=== PATIENT | female | born 1985 | race Caucasian/White ===

== ENCOUNTER 2016-04-15 18:26 | Emergency (ER) | payer BC ==
[2016-04-15 18:34] VITALS: BP 119/82
[2016-04-15] MEDS ORDERED: Fluorescein Sodium TOPICAL* 1 MG TEST ONE (19:17)
[2016-04-15] MEDS ORDERED: BSS OPTH.SOL* BTL ONE (19:17)
[2016-04-15] MEDS ORDERED: Proparacaine 0.5% OPHTH.SOL* 15 ML BTL ONE (19:17)
--- NOTE | 2016-04-15 19:23 | UC ---
Eye Complaint HPI - History of Current Complaint Chief Complaint: UCEye Stated Complaint: LEFT EYE INJURY Time Seen by Provider: 04/15/16 19:12 Hx Obtained From: Patient Hx Last Menstrual Period: 04/07/16 ?: No Onset/Duration: Sudden Onset - hit eye on corner with immediate pain., Lasting Hours - 7, Still Present Severity Initially: Moderate Severity Currently: Moderate Location of Injury: Conjunctiva, Globe Character: Sharp Aggravating Factor(s): Blinking, Other - moving the eye Alleviating Factor(s): Nothing Associated Signs And Symptoms: Positive: Photophobia, Vision Impairment Right - lower visual field. Negative: Drainage (Clear), Drainage (Purulent), Vision Impairment Bilateral - Risk Factors Penetrating Injury Risk Factor: Negative Globe Rupture Risk Factors: Recent Trauma Optic Artery Occlusion Risk Factors: Negative - Allergies/Home Medications Allergies/Adverse Reactions: Allergies Allergy/AdvReac Type Severity Reaction Status Date / Time Sulfa Antibiotics Allergy Severe Hives Verified 04/15/16 18:34 Morphine Allergy Mild Rash Verified 04/15/16 18:34 Sulfa Drugs Allergy Mild Rash Verified 04/15/16 18:34 ENVIRONMENTAL Allergy Congestion Uncoded 04/15/16 18:34 Home Medications: Home Medications DOXYcycline CAP(*) [DOXYcycline 100MG CAP(*)] 100 mg PO DAILY 04/15/16 [History Confirmed 04/15/16] Tizanidine HCl 2 mg PO DAILY 04/15/16 [History Confirmed 04/15/16] hydrOXYzine HCL TAB* [Atarax TAB*] 10 mg PO QID PRN 04/15/16 [History Confirmed 04/15/16] PMH/Surg Hx/FS Hx/Imm Hx Endocrine History Of: Denies: Diabetes, Thyroid Disease Cardiovascular History Of: Denies: Cardiac Disorders, Hypertension, Pacemaker/ICD Respiratory History Of: Reports: Asthma - USES INHALERS Denies: COPD GI/ History Of: Denies: Ulcer, Renal Disease Psychological History Of: Reports: Anxiety - ON MEDICATION, Depression - ON MEDICATION - Surgical History Surgical History: Yes Surgery Procedure, Year, and Place: LEFT KNEE SURGERY X2, APPENDECTOMY, CHOLECYSTECTOMY. WISDOM TEETH EXTRACTED. 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 Lives: With Family Alcohol Use: None Substance Use Type: None Smoking Status (MU): Never Smoked Tobacco Have You Smoked in the Last Year: No - Immunization History Most Recent Influenza Vaccination: Jan 2013 Review of Systems Eyes: Blurred Vision, Eye Redness All Other Systems Reviewed And Are Negative: Yes Physical Exam Triage Information Reviewed: Yes Appearance: Well-Appearing, No Pain Distress, Well-Nourished Vital Signs: Initial Vital Signs Temp 97.7 F 04/15/16 18:31 Pulse 97 04/15/16 18:31 Resp 16 04/15/16 18:31 BP 119/82 04/15/16 18:31 Pulse Ox 99 04/15/16 18:31 Vital Signs Reviewed: Yes Eyes: Positive: Other: - hemorrhage on the medial inferior left eye conjunctiva. [place] intact to opposition. ENT Exam: Normal ENT: Positive: Nasal congestion Neck exam: Normal Neck: Positive: Nontender Respiratory Exam: Normal Cardiovascular Exam: Normal Musculoskeletal Exam: Normal Neurological Exam: Normal Psychological Exam: Normal Skin Exam: Normal - Additional Comments Left eye flourescein uptake positive for the lower medial edge of the cornea onto the conjunctiva. Eye Complaint Course/Dx - Differential Dx/Diagnosis Differential Diagnosis/HQI/PQRI: Corneal Abrasion, Detached Retina, Hyphema Provider Diagnoses: Corneal abrasion. Discharge - Discharge Plan Condition: Stable Disposition: HOME Prescriptions: Erythromycin OPHTH.OINT* [Ilotycin OPHTH.OINT*] 0.25 inch LEFT EYE TID #3.5 gm Patient Education Materials: Corneal Abrasion (ED), Erythromycin (Into the eye ) Additional Instructions: EYE OINTMENT USE: Wash hands. Place 1/4" strip across tip of finger. Pull lower lid down with the index finger and stabilize the ointment finger with the middle finger and scrape the ointment off on the lid. Pull the lid out and let go as you look down.
[2016-04-15] MEDS ORDERED: Erythromycin OPTH OINT* APPLIC OINT LEFT EYE ONE (19:31)
== END 2016-04-15 19:44 | disposition home or self-care (01) ==
LOC: UCCORT 18:26
DX: S05.02XA Injury of conjunctiva and corneal abrasion without foreign body, left eye, initial encounter (principal); W22.8XXA Striking against or struck by other objects, initial encounter; Y92.9 Unspecified place or not applicable
CPT/HCPCS: 99213; A9270-GY; G0463

== ENCOUNTER 2018-05-29 23:17 | Emergency (ER) | payer BC ==
--- NOTE | 2018-05-30 00:21 | ED ---
Neurological HPI - HPI Summary HPI Summary: A 33 y/o female brought in by [place] ambulance accompanied by her presents to [facility] with a chief complaint of a possible seizure on 05/28/18. The patient went to [facility] where she had bloodwork and a CT done which were negative. Per , at 17:00 on 05/28/18 the patient's full body was twitching and her eyes were rolling. She fell face first into her sons closet. The seizure-like activity lasted less than 45 seconds and afterwards she was groggy for about 35 seconds but looked mostly like she "just woke up from a nap. After she was discharged she has had trouble with body spasms when trying to sleep. She has been having N/V with headaches and is photophobic. At triage she rated her pain a 0/10 in severity. She remembers feeling nasal congestion before her seizure-like activity. She has a Hx of migraines and narcolepsy and sees Dr. Cruz. The patient reports that her headache is unlike her typical migraines. 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 Episode Lasting: Seconds/Minutes Aggravating: Bright Lights Alleviating: Nothing Associated Signs and Symptoms: Positive: Headache, Nausea/Vomiting - Allergy/Home Medications Allergies/Adverse Reactions: Allergies Allergy/AdvReac Type Severity Reaction Status Date / Time Sulfa (Sulfonamide Allergy Severe Hives Verified 04/28/18 11:03 Antibiotics) morphine AdvReac Mild GI Upset Verified 04/28/18 11:03 ENVIRONMENTAL Allergy Intermediate Congestion Uncoded 04/28/18 11:03 PMH/Surg Hx/FS Hx/Imm Hx Endocrine/Hematology History: Denies: Hx Diabetes, Hx Thyroid Disease Cardiovascular History: Reports: Other Cardiovascular Problems/Disorders - asthma ok today per pt Denies: Hx Hypertension, Hx Pacemaker/ICD Respiratory History: Reports: Hx Asthma - USES INHALERS, Hx Seasonal Allergies Denies: Hx Chronic Obstructive Pulmonary Disease (COPD) GI History: Reports: Hx Gastroesophageal Reflux Disease - rare Denies: Hx Ulcer Comment Only: Other GI Disorders - rt side abd pain, vomiting since this am History: Denies: Hx Renal Disease Musculoskeletal History: Reports: Hx Arthritis, Hx Back Problems, Hx Orthopedic Injury, Other Musculoskeletal History - various falls and injuries d/t equestrian activities Denies: Hx Scoliosis Sensory History: Denies: Hx Contacts or Glasses, Hx Hearing Aid Opthamlomology History: Denies: Hx Contacts or Glasses Neurological History: Reports: Hx Headaches, Hx Migraine, Other Neuro Impairments/Disorders - narcolepsy Psychiatric History: Reports: Hx Anxiety, Hx Attention Deficit Hyperactivity Disorder, Hx Depression, Hx Post Traumatic Stress Disorder, Other Psychiatric Issues/Disorders - Mood Disorder, Narcolepsy, Nightmares, Denies: Hx Panic Disorder - Cancer History Hx Chemotherapy: No - Surgical History Surgery Procedure, Year, and Place: [facility]: LEFT KNEE SURGERY X2 2009, 2011,. [facility] : APPENDECTOMY 2011,. [facility]: CHOLECYSTECTOMY 2009,. [facility]: SINUS SURG X2 2014. [facility]: 2014. WISDOM TEETH EXTRACTED Hx Anesthesia Reactions: No Infectious Disease History: No Infectious Disease History: Reports: Hx Shingles Denies: Hx Hepatitis, Hx Human Immunodeficiency Virus (HIV), Traveled Outside the [place] in Last 30 Days - Family History Known Family History: Positive: Hypertension - Social History Alcohol Use: Rare Hx Substance Use: No Substance Use Type: Reports: None Hx Tobacco Use: No Smoking Status (MU): Never Smoked Tobacco Have You Smoked in the Last Year: No Review of Systems Positive: Photophobia Positive: Vomiting, Nausea Neurological: Other - positive: possible seizure Positive: Headache All Other Systems Reviewed And Are Negative: Yes Physical Exam - Summary Physical Exam Summary: Appearance: Well-appearing, Well-nourished, lying in bed comfortably Skin: Warm, dry, no obvious rash Eyes: sclera anicteric, no conjunctival pallor ENT: mucous membranes moist, pharynx appears normal Neck: Supple, nontender Respiratory: Clear to auscultation, no signs of respiratory distress Cardiovascular: Normal S1, S2. No murmurs. Normal distal pulses in tibial and radial bilaterally. Abdomen: Soft, nontender, normal active bowel sounds present Musculoskeletal: Normal, Strength/ROM Intact Neurological: A&Ox3, awake and alert, mentation is normal, speech is fluent and appropriate Psychiatric: affect is normal, does not appear anxious or depressed Triage Information Reviewed: Yes Vital Signs On Initial Exam: Initial Vitals Pulse Resp BP Pulse Ox 107 13 114/96 98 05/29/18 23:26 05/29/18 23:26 05/29/18 23:26 05/29/18 23:26 Vital Signs Reviewed: Yes Diagnostics - Vital Signs Vital Signs Temp Pulse Resp BP Pulse Ox 05/30/18 00:01 95 15 99 05/29/18 23:56 100 13 131/92 98 05/29/18 23:31 98.9 F 122 18 114/96 98 05/29/18 23:27 104 19 98 05/29/18 23:26 107 13 114/96 98 - Laboratory Lab Statement: Any lab studies that have been ordered have been reviewed, and results considered in the medical decision making process. Course/Dx - Course Course Of Treatment: A 33 y/o female brought in by [place] ambulance accompanied by her presents to [facility] with a chief complaint of a possible seizure on 05/28/18. The patient went to [facility] where she had bloodwork and a CT done which were negative. Per , at 17:00 on 05/28/18 the patient's full body was twitching and her eyes were rolling. She fell face first into her sons closet. The seizure-like activity lasted less than 45 seconds and afterwards she was groggy for about 35 seconds but looked mostly like she "just woke up from a nap. After she was discharged she has had trouble with body spasms when trying to sleep. She has been having N/V with headaches and is photophobic. At triage she rated her pain a 0/10 in severity. She remembers feeling nasal congestion before her seizure-like activity. She has a Hx of migraines and narcolepsy and sees Dr. Cruz. The patient reports that her headache is unlike her typical migraines. The physical exam was unremarkable. In the ED course the patient was given Acetaminophen PO, Benadryl IV, Toradol IV and Compazine IV. Upon re-eval the patient was feeling better. She will be discharged home. She is agreeable with this plan. - Diagnoses Provider Diagnoses: Migraine headache Discharge - Sign-Out/Discharge Documenting (check all that apply): Patient Departure - DC Patient Received Moderate/Deep Sedation with Procedure: No - Discharge Plan Condition: Improved Disposition: HOME Patient Education Materials: Migraine Headache (ED) Referrals: Navarro LEON,Cheo Oviedo [Primary Care Provider] - Additional Instructions: The episode you had on Saturday does not sound typical for a seizure, rather it is likely a fainting episode with some convulsive type activity associated with it (convulsive syncope). I think this likely triggered a migraine, which seems to have responded to treatment here, so I don't feel that we need to admit you to the hospital, but I would recommend you followup with your neurologist about this. - Billing Disposition and Condition Condition: IMPROVED Disposition: Home - Attestation Statements Document Initiated by Mariluz: Yes Documenting Scribe: Jacky Hernandez Provider For Whom Mariluz is Documenting (Include Credential): Arnaldo Ibarra MD Scribe Attestation: I, Jacky Hernandez, scribed for Arnaldo Ibarra MD on 06/03/18 at 1850. Scribe Documentation Reviewed: Yes Provider Attestation: The documentation as recorded by the Jacky aggarwal accurately reflects the service I personally performed and the decisions made by me, Arnaldo Ibarra MD Status of Scribe Document: Viewed
--- OUTSIDE RECORDS SUMMARY | 2018-05-30 00:27 | XMS REPORT | Continuity of Care Document ---
:1985 External Reference #:[id number] Author Name Caitlin Ortiz Care Team Providers Name Role Phone Cheo Briceño PA Primary Care Physician Unavailable Payers Date Identification Numbers Payment Provider Subscriber Effective: 2010 Policy Number: [id number] [employer] Fareed Arango PayID: [id number] [address] [address] [place] [address] Advance Directives Description No Information Available Problems Date Description Provider Status Onset: 10/18/2015 Narcolepsy Yahaira Connelly MD Active Onset: 11/14/2015 Obesity Jessica Bowman MD Active Onset: 11/14/2015 Hypersomnia, unspecified Jessica Bowman MD Active Onset: 11/14/2015 Recurrent isolated sleep paralysis Jessica Bowman MD Active Onset: 01/03/2016 Obstructive sleep apnea syndrome Jessica Bowman MD Active Onset: 01/03/2016 Sleep dysfunction with sleep stage Jessica Bowman MD Active disturbance Family History Date Family Member(s) Observation Comments General narcolepsy maternal grandmother General Multiple Sclerosis (MS) aunt General mother-kidney disease,depression,anxiety Father Stroke Mother Hypertension Mother Hypercholesterolemia Mother Obesity Siblings 1/[address] from Cystic fibrosis Social History Type Date Description Comments Sex Unknown Marital Status 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 /2018 s each Jackson, nostril M.D. prn migraine, max 2 doses a day, max 2 days a week Methylphenidate 05/08 Active Tablets 10mg 60tab 1 po qam G47.411 Adam S. HCL s for 1 wk Jackson, then 1 qam M.D. and 1 at noon Knee Scooter 05/02 Active use as M25.372 needed for Zheng, non-weight M.D. bearing Oxycodone HCL 04/28 Active Tablets 5mg 20tab 1 tabs by Ludin s mouth Zheng, every 6 M.D. hours as needed Sumatriptan 03/13 Active Solution 4mg/0.5ML 3ml 1 Adam S. Auto-Inject injection Anthony, twice M.D. daily as needed headache no more than 2 days/week. please include autoinject or with instructio ns. Melatonin 01/02 Active Tablets 5mg 30tab 1 tablet F51.5 Jessica s by mouth MD Colby at night-uses 10mg tab now at bedtime Bupropion HCL Active Tablets 300mg 90tab 1 po qd Unknown /0000 s Zyrtec Allergy Active Tablets 10mg 90tab 1 tab qd Unknown /0000 s as needed Ventolin HFA Active Aerosol 108(90Bas 1unit 2 puffs po Unknown /0000 e) s qid prn mcg/Act Ibuprofen Active Tablets 200mg 100ta 1 tab po Unknown /0000 bs prn Loratadine Active Tablets 10mg 1 by mouth Unknown Allergy Relief /0000 Dispers every day as needed Tizanidine HCL Active Tablets 2mg 1 tab tid Unknown /0000 as needed Lexapro 00 Active Tablets 10mg 1 by mouth Unknown /0000 every day Nuvaring Active Ring 0.12-0.01 insert Unknown /0000 5mg/24HR intravagin ally for 3 weeks, then remove for 1 week Multi-Vitamin Active Tablets 1 by mouth Unknown Daily /0000 every day Tums 00 Active Chewtabs 500mg 4 Unknown /0000 chewtabs by mouth as needed, indigestio n Aleve Active Tablets 220mg 2 tablets Unknown /0000 every 12 hours as needed pain Depakote Active Tablets DR 250mg 1 by mouth Unknown /0000 in A.M. and 4 tabs at night Flonase Allergy Active Suspension 50mcg/Act 2 puffs Unknown Relief each nare as needed Medical Active Powder dilutes Unknown Marijuana 1 of teaspoon in water consumes orally as needed Merkel Active Tablets 300mg Unknown Carbonate / Methylphenidate Active Tablets 10mg take 1 Unknown HCL / tablet by mouth once daily Amitriptyline 01/16 Hx Tablets 10mg 90tab 1po qhs G43.009 Adam S. s for 2 wks Anthony, - then 2 qhs M.D. 03/10 for 2 wks /2017 then 3 qhs Ultracet 09/02 Hx Tablets 37.5-325m 30tab 1 - 2 po Ivonne /2012 g s q4-6hr prn Pendleton, - pain M.D. 01/14 Venlafaxine HCL Hx Tablets 75mg 90tab 1 po qd Unknown / s - 01/14 Buspirone HCL Hx Tablets 5mg 60tab 1 tab by Unknown /0000 s mouth tid - prn 01/14 Naproxen Hx Tablets 250mg 60tab 1 tab po Unknown / s tid prn - 01/15 Ortho-Cyclen Hx Tablets 0.25-35mg 1tabs 1 po qd Unknown /0000 -mcg - 01/14 Oxycodone/Acetam Hx Tablets 5-325mg 90tab 1 tab po Unknown inophen /0000 s q 4 hrs - prn pain 01/14 Metaxalone Hx Tablets 800mg 30tab take 1 Unknown /0000 s tablet 3 - times a 01/14 day needed Pulmicort Hx Aerosol 180mcg/Ac 1unit 2 puffs Unknown Flexhaler / t s twice - daily 01/14 Sertraline HCL 00 Hx Tablets 100mg 1.5 tabs Unknown /0000 by mouth - every day 01/14 Albuterol Hx Tablets 2mg 2 puffs Unknown Sulfate /0000 four times - a day as 01/14 Percocet Hx Tablets 5-325mg 1-2 by Unknown /0000 mouth - every 4 to 01/14 6 hours as needed pain Trazodone HCL Hx Tablets 50mg 1 tablet Unknown /0000 at bedtime - as needed 01/14 Hydroxyzine HCL Hx Tablets 50mg take 1 tab Unknown /0000 by mouth - three 03/10 times a day as needed Oxycodone HCL Hx Tablets 10mg 1 by mouth Unknown /0000 every 6 - hours as 03/10 pain Gabapentin Hx Capsules 100mg 1 PO QHS Unknown /0000 - 03/10 Merkel Hx Tablets 300mg 1 tab Unknown Carbonate /0000 twice - daily 04/15 Sumatriptan Hx Tablets 100mg take 1 Unknown Succinate /0000 tablet by - mouth AT 03/13 Onset Migraine, May Repeat Once In 2 Hours as Needed Methylphenidate Hx Tablets 10mg take 1 Unknown HCL /0000 tablet by - mouth once 04/15 Immunizations Description No Information Available Vital Signs Date Vital Result Comment 05/27/2018 9:18am Height 67.25 inches 5'7.25" Weight 210.00 lb Patient stated Heart Rate 80 /min BP Systolic 110 mmHg BP Diastolic 68 mmHg Respiratory Rate 14 /min Pain Level 2 BMI (Body Mass Index) 32.6 kg/m2 05/08/2018 10:06am Height 67.25 inches 5'7.25" Weight 213.00 lb Heart Rate 64 /min BP Systolic 138 mmHg BP Diastolic 90 mmHg Respiratory Rate 17 /min Body Temperature 98.1 F Pain Level 7 BMI (Body Mass Index) 33.1 kg/m2 04/16/2018 1:25pm Heart Rate 100 /min BP Systolic Sitting 100 mmHg BP Diastolic Sitting 78 mmHg Respiratory Rate 12 /min no respiratory difficulties Pain Level 3 03/13/2018 8:22am Height 67.25 inches 5'7.25" Weight 200.00 lb BP Systolic Sitting 124 mmHg BP Diastolic Sitting 70 mmHg Respiratory Rate 17 /min Pain Level 4 BMI (Body Mass Index) 31.1 kg/m2 03/12/2018 1:09pm Height 67.25 inches 5'7.25" Weight 200.00 lb Heart Rate 68 /min BP Systolic Sitting 122 mmHg BP Diastolic Sitting 80 mmHg Respiratory Rate 16 /min Pain Level 3 BMI (Body Mass Index) 31.1 kg/m2 01/29/2018 3:35pm Height 67.25 inches 5'7.25" Weight 202.00 lb BP Systolic 122 mmHg BP Diastolic 76 mmHg BMI (Body Mass Index) 31.4 kg/m2 01/16/2018 8:40am Height 67.25 inches 5'7.25" Weight 202.00 lb Heart Rate 104 /min BP Systolic 114 mmHg BP Diastolic 76 mmHg Respiratory Rate 16 /min Pain Level 2 O2 % BldC Oximetry 98 % BMI (Body Mass Index) 31.4 kg/m2 01/15/2018 9:14am Height 67 inches 5'7" Weight 202.00 lb Heart Rate 91 /min BP Systolic 130 mmHg BP Diastolic 84 mmHg Respiratory Rate 16 /min Pain Level 4 O2 % BldC Oximetry 98 % BMI (Body Mass Index) 31.6 kg/m2 01/03/2016 11:41am Height 67 inches 5'7" Weight 206.00 lb Heart Rate 72 /min BP Systolic Sitting 128 mmHg BP Diastolic Sitting 74 mmHg Respiratory Rate 14 /min O2 % BldC Oximetry 98 % BMI (Body Mass Index) 32.3 kg/m2 11/14/2015 11:03am Height 67 inches 5'7" Weight 126.00 lb Heart Rate 88 /min BP Systolic 124 mmHg BP Diastolic 88 mmHg Respiratory Rate 14 /min O2 % BldC Oximetry 98 % BMI (Body Mass Index) 19.7 kg/m2 Neck Circumference in inches 15 10/18/2015 1:17pm Height 67 inches 5'7" Weight 216.00 lb Heart Rate 56 /min BP Systolic Sitting 120 mmHg BP Diastolic Sitting 88 mmHg Respiratory Rate 14 /min BMI (Body Mass Index) 33.8 kg/m2 08/22/2012 8:57am Heart Rate 86 /min BP Systolic Sitting 122 mmHg BP Diastolic Sitting 78 mmHg Respiratory Rate 16 /min 07/11/2012 11:22am Weight 175.00 lb Heart Rate 71 /min BP Systolic Sitting 122 mmHg BP Diastolic Sitting 86 mmHg Respiratory Rate 18 /min Results Test Date Facility Test Result H/L Range Note Surgical Pathology 09/02/2012 [facility] S RUN DATE: [address] <SEE NOTE> [place], [place] [id number] [phone] 1 RUN DATE: 09/04/12 [facility] LAB LIVE PAGE 1 RUN TIME: 1312 [address] [employer] [facility], [place], [place] [address] Specimen Inquiry Name: LEONILA RODRIGUEZ : [address]: Ivonne Pendleton MD Acct: [id number] Unit: [id number] AGE: 27 Location: [facility] Re09/02/12 SEX: F Status: REG [facility] SPEC: [id number] OBDULIO: 09/02/12- [facility] DR: Ivonne Pendleton MD REQ: [id number] RECD: 09/02/12 STATUS: SOUT _ ORDERED: LEVEL III FINAL DIAGNOSIS Soft tissue right little finger, excision: 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 PRE-OPERATIVE DIAGNOSIS Right little finger foreign body GROSS DESCRIPTION The specimen is received in formalin labeled Leonila Rodriguez, Right Little Finger Mass, and consists of a skin and subcutaneous tissue measuring 1.0 x 6 x 0.4 cm. Also submitted is a minute mistry, soft tissue fragment measuring 0.3 x 0.2 x 0.1 cm. The specimen is inked, sectioned, and submitted entirely, one cassette. Signed (signature on file) Cheo Kaye MD 1311 END OF REPORT * ML=Testing performed at Main Lab DEPARTMENT OF PATHOLOGY, [address] [place] [address] Cheo Kaye M.D. Director [facility] Permit #[id number] Procedures Date Code Description Status 05/08/2018 35276 Short Leg Cast Completed 04/28/2018 31682 Repair Collateral Ligament Ankle, Primary Completed 04/28/2018 46957 Repair Collateral Ligament Ankle, Primary Completed 12/14/2015 38085 Polysomnography Sleep Staging 4+ Parameters Completed 09/02/2012 07555 Excision Tumor,Soft Tissue Of Hand Or Finger Subq Completed 08/28/2012 95170 Rad Exam; Fingers Completed 07/30/2012 02771 EEG Recording Awake & Drowsy Completed Encounters Type Date Location Provider Dx Diagnosis Office Visit 05/08/2018 [place] G43.009 Migraine w/o aura , 4:00p Neurologic Serv Of Kishor Cruz not intractable, Tumbler Machine Operator w/o status migrainosus 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 left ankle AT [place] Office Visit 01/29/2018 3:15p Orthopedic Ludin M25.372 Other instability, Services Of Ann-Marie Calzada M.D. 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 M54.5 Low back pain Office Visit 01/15/2018 9:00a Orthopedic Ludin Calzada M25.572 Pain in left Services Of [facility] AT M.DWilfred ankle and [place] joints of left foot M25.372 Other instability, left ankle Office Visit 01/03/2016 11:30a Pulmonology And Jessica G47.33 Obstructive sleep Sleep Services Of MD Colby apnea (adult) [employer]bler Machine Operator (pediatric) G47.10 Hypersomnia, unspecified G47.53 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 Multiple Sites Office Visit 08/22/2012 8:45a [place] Anya Palencia 780.79 Mal[place]ise And Services Of Ann-Marie Carrero M.D. Fatigue Other 327.43 Recurrent Isolated Sleep Paralysis Office Visit 07/11/2012 11:00a [place] Anya Palencia 780.79 [place] And Services Of Ann-Marie Carrero M.D. Fatigue Other 780.02 Transient Alteration Of Awareness Office Visit 10/12/2010 [employer] Ivonne 832.02 Dislocation Elbow 10:00a of Ann-Marie Pendleton M.D. Posterior Closed Plan of Treatment Future Appointment(s):06/24/2018 9:30 am - Ludin Calzada M.D. at [facility] [place]07/10/2018 1:30 pm - Adam Cruz M.D. at [facility] Neurologic Serv Of [facility]05/27/2018 - Ludin Calzada M.D.M25.372 Other instability, left ankleNew Therapy:Physical TherapyFollow up:4 weeks
--- OUTSIDE RECORDS SUMMARY | 2018-05-30 00:27 | XMS REPORT | Continuity of Care Document ---
:1985 External Reference #:[id number] Author Name Blanca Ruano Care Team Providers Name Role Phone Cheo Briceño PA Primary Care Physician Unavailable Payers Type Date Identification Numbers Payment Provider Subscriber Effective: Policy Number: [id number] [employer] Fareed Arango 2010 PayID: [id number] [address] [address] [place] [address] Advance Directives Description No Information Available Problems [...] Active disturbance Family History Date Family Member(s) Problem(s) Comments General narcolepsy maternal grandmother General Multiple Sclerosis (MS) aunt General mother-kidney disease,depression,anxiety Father Stroke Mother Hypertension Mother Hypercholesterolemia Mother Obesity Siblings 1/[address] from Cystic fibrosis Social History Type Date Description Comments Sex Unknown Marital 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 s each Anthony, nostril M.D. prn migraine, max 2 doses a day, max 2 days a week Methylphenidate 05/08 Active Tablets 10mg 60tab 1 po qam G47.411 Adam S. HCL s for 1 wk [place], then 1 qam M.D. and 1 at noon Knee Scooter 05/02 Active use as M25.372 needed for Zheng, non-weight M.D. bearing Oxycodone HCL 04/28 Active Tablets 5mg 20tab 1 tabs by Ludin s mouth Zheng, every 4-6 M.D. hours as needed Sumatriptan 03/13 Active [...] tab tid Unknown /0000 as needed Lexapro Active Tablets 10mg 1 by mouth Unknown /0000 every day Nuvaring 00 Active Ring 0.12-0.01 insert Unknown /0000 5mg/24HR intravagin ally for 3 weeks, then remove for 1 week Multi-Vitamin Active Tablets 1 by mouth Unknown Daily /0000 every day Tums Active Chewtabs 500mg 4 Unknown /0000 chewtabs by mouth as needed, indigestio n Aleve Active Tablets 220mg 2 tablets Unknown /0000 every 12 hours as needed pain Depakote Active Tablets DR 250mg 1 by mouth Unknown /0000 in A.M. and 4 tabs at night Flonase Allergy Active Suspension 50mcg/Act 2 puffs Unknown Relief / each nare as needed Medical Active Powder dilutes Unknown Marijuana 1/ of teaspoon in water consumes orally as needed [place] Active Tablets 300mg Unknown Carbonate / Methylphenidate [...] Tablets 75mg 90tab 1 po qd Unknown /0000 s - 01/14 Buspirone HCL Hx Tablets 5mg 60tab 1 tab by Unknown /0000 s mouth tid - prn 01/14 Naproxen Hx Tablets 250mg 60tab 1 tab po Unknown /0000 s tid prn - 01/15 Ortho-Cyclen Hx [...] Aerosol 180mcg/Ac 1unit 2 puffs Unknown Flexhaler /0000 t s twice - daily 01/14 Sertraline HCL Hx Tablets 100mg 1.5 tabs Unknown /0000 by mouth - every day 01/14 Albuterol Hx Tablets 2mg 2 puffs Unknown Sulfate /0000 four times - a day as 01/14 Percocet Hx Tablets 5-325mg 1-2 by Unknown /0000 mouth - every 4 to 01/14 6 hours needed pain Trazodone HCL Hx Tablets 50mg 1 tablet Unknown /0000 at bedtime - as needed 01/14 Hydroxyzine HCL Hx Tablets 50mg take 1 tab Unknown /0000 by mouth - three 03/10 times a day as needed Oxycodone HCL Hx Tablets 10mg 1 by mouth Unknown /0000 every 6 - hours as 03/10 needed pain Gabapentin Hx Capsules 100mg 1 PO QHS Unknown /0000 - 03/10 [place] Hx Tablets 300mg 1 tab Unknown Carbonate /0000 twice - daily 04/15 Sumatriptan Hx Tablets 100mg take 1 Unknown Succinate /0000 tablet by - mouth AT 03/13 Onset Migraine, May Repeat Once In 2 Hours as Needed Methylphenidate Hx Tablets 10mg take 1 Unknown HCL /0000 tablet by - mouth once 04/15 Immunizations Description No Information Available Vital Signs Date Vital Result Comment 05/08/2018 10:06am Height 67.25 inches 5'7.25" Weight [...] Result H/L Range Note Surgical Pathology 09/02/2012 [facility] S RUN DATE: [address] <SEE NOTE> [place] [address] [phone] 1 RUN DATE: 09/04/12 [facility] LAB LIVE PAGE 1 RUN TIME: [address] [place] [address], [place], [place] [address] Specimen Inquiry Name: LEONILA RODRIGUEZ Mary : [address]: Ivonne Pendleton MD Acct: [id number] Unit: [id number] AGE: 27 Location: [facility] Re09/02/12 SEX: F Status: REG 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 PRE-OPERATIVE DIAGNOSIS Right little finger foreign body GROSS DESCRIPTION The specimen is received in formalin labeled Leonila MaryWilfred Asif, Right Little Finger Mass, and consists of [...] performed at Main Lab DEPARTMENT OF PATHOLOGY, [address] [place] [address] Cheo Kaye M.D. Director [facility] Permit #[id number] Procedures Date Code Description Status 05/08/2018 95257 Short Leg Cast Completed 04/28/2018 53896 Repair Collateral Ligament Ankle, Primary Completed 04/28/2018 50600 Repair Collateral Ligament Ankle, Primary Completed 12/14/2015 27678 Polysomnography Sleep Staging 4+ Parameters Completed 09/02/2012 70809 Excision Tumor,Soft Tissue Of Hand Or Finger Subq Completed 08/28/2012 01164 Rad Exam; Fingers Completed 07/30/2012 95997 EEG Recording Awake & Drowsy Completed Encounters Type Date Location Provider Dx Diagnosis Office Visit 04/16/2018 Orthopedic Ludin Calzada M25.372 Other 1:15p Services Of Applications Systems Engineer WINNIE Paris.D. 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 left ankle AT [place] Office Visit 01/29/2018 3:15p Orthopedic Ludin Diaz5.372 Other instability, Services Of Ann-Marie Calzada M.D. 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 M54.5 Low back pain Office Visit 01/15/2018 9:00a Orthopedic Ludin Calzada, M25.572 Pain in left Services Of [facility] AT M.DWilfred ankle and [place] joints of left foot M25.372 Other instability, left ankle Office Visit 01/03/2016 11:30a Pulmonology And Jessica G47.33 Obstructive sleep Sleep Services Of MD Colby apnea (adult) [facility] (pediatric) G47.10 Hypersomnia, unspecified G47.53 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 Multiple Sites Office Visit 08/22/2012 8:45a [place] Anya Palencia 780.79 [facility] And Services Of Ann-Marie Carrero M.D. Fatigue Other 327.43 Recurrent Isolated Sleep Paralysis Office Visit 07/11/2012 11:00a [place] Anya Palencia 780.79 [facility] And Services Of [facility] Kishor Carrero Fatigue Other 780.02 Transient Alteration Of Awareness Office Visit 10/12/2010 [employer] Ivonne 832.02 Dislocation Elbow 10:00a of Ann-Marie Pendleton M.D. Posterior Closed Plan of Treatment Future Appointment(s):07/10/2018 1:30 pm - Adam Cruz M.D. at [place]/ [place] [facility]rologic Serv Of [facility]06/03/2018 11:30 am - Ludin Calzada M.D. at [facility]05/08/2018 - Adam Cruz M.D.G43.009 Migraine without aura, not intractable, without status migraNew Medication: Sumatriptan 5 mg/Act - 1 spray each nostril prn migraine, max 2 doses a day, max 2 days a weekFollow up:3-4 cwqncxZ74.411 Narcolepsy with cataplexyNew Medication:Methylphenidate HCL 10 mg - 1 po qam for 1 wk then 1 qam and 1 at noon
--- OUTSIDE RECORDS SUMMARY | 2018-05-30 00:27 | XMS REPORT | Continuity of Care Document ---
:1985 External Reference #:[id number] Author Name Meli Bourgeois Care Team Providers Name Role Phone Cheo Briceño PA Primary Care Physician Unavailable Payers Type Date Identification Numbers Payment Provider Subscriber Effective: Policy Number: [id number] [employer] Fareed Arango 2010 PayID: [id number] [address] [address] [place] [address] Advance Directives Description No Information Available Problems [...] Form Strength Qnty SIG Indications Ordering Provider Knee Scooter 05/02 Active use as M25.372 [...] Tablets 5mg 30tab 1 tablet F51.5 Jessica /2016 s by mouth MD Colby at night-uses [...] Active Suspension 50mcg/Act 2 puffs Unknown Relief /0000 each nare as needed Medical Active Powder dilutes Unknown Marijuana /0000 04/15 of teaspoon in water consumes orally as needed [place] Active Tablets 300mg Unknown Carbonate /0000 Methylphenidate Active Tablets 10mg take 1 Unknown HCL /0000 tablet by mouth once daily Amitriptyline 01/16 Hx Tablets 10mg 90tab 1po qhs G43.009 Adam S. s for 2 wks Anthony, - then 2 qhs M.D. 03/10 for 2 wks /2017 then 3 qhs Ultracet 09/02 Hx Tablets 37.5-325m 30tab 1 - 2 po Ivonne /2013 g s q4-6hr prn Pendleton, - pain [...] 01/14 6 hours needed pain Trazodone HCL 00/00 Hx Tablets 50mg 1 tablet Unknown /0000 at bedtime - as needed 01/14 Hydroxyzine HCL 00 Hx Tablets 50mg take 1 tab Unknown /0000 by mouth - three 03/10 times a day as needed Oxycodone HCL Hx Tablets 10mg 1 by mouth Unknown /0000 every 6 - hours as 03/10 pain Gabapentin 00 Hx Capsules 100mg 1 PO QHS Unknown /0000 - 03/10 [place] Hx Tablets 300mg 1 tab Unknown Carbonate [...] Signs Date Vital Result Comment 05/08/2018 10:06am Heart Rate 64 /min BP Systolic 138 mmHg BP Diastolic 90 mmHg Body Temperature 98.1 F Pain Level 7 04/16/2018 1:25pm Heart Rate 100 /min BP [...] Result H/L Range Note Surgical Pathology 09/02/2012 [facility] S RUN DATE: [address] <SEE NOTE> [place] [address] [phone] RUN DATE: 09/04/12 [facility] LAB LIVE PAGE 1 RUN TIME: [id number] [facility], [place], [place] [address] Specimen Inquiry Name: LEONILA RODRIGUEZ : [address]: Ivonne Pendleton MD Acct: [id number] Unit: [id number] AGE: 27 Location: [facility] Re09/02/12 SEX: F Status: REG [facility] SPEC: [id number] OBDULIO: 09/02/12- [facility] DR: Ivonne Pendleton MD REQ: [id number] RECD: 09/02/12 STATUS: SOUT _ ORDERED: LEVEL [...] performed at Main Lab DEPARTMENT OF PATHOLOGY, [address] [place] [address] Ceho Kaye M.D. Director [facility] Permit #[id number] Procedures Date Code Description Status 05/08/2018 12872 Short Leg Cast Completed 12/14/2015 31193 Polysomnography Sleep Staging 4+ Parameters Completed 09/02/2012 72362 Excision Tumor,Soft Tissue Of Hand Or Finger Subq Completed 08/28/2012 61544 Rad Exam; Fingers Completed 07/30/2012 65405 EEG Recording Awake & Drowsy Completed Encounters Type Date Location Provider Dx Diagnosis Office Visit 04/16/2018 Orthopedic Ludin Calzada M25.372 Other 1:15p Services Of Ann-Marie ZHOU M.D. 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 left ankle AT [place] Office Visit 01/29/2018 3:15p Aguilar Noland M25.372 Other instability, Services Of Ann-Marie Calzada M.D. 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 Multiple Sites Office Visit 08/22/2012 8:45a [place] [facility] Kristi Palencia 780.79 Malaise And [facility] Of [facility] Kishor Carrero Fatigue Other 327.43 Recurrent Isolated Sleep Paralysis Office Visit 07/11/2012 11:00a [place] Anya Palencia 780.79 [place] And Services Of Ann-Marie Carrero M.D. Fatigue Other 780.02 Transient Alteration Of Awareness Office Visit 10/12/2010 [employer] Ivonne 832.02 Dislocation Elbow 10:00a of Ann-Marie Pendleton M.D. Posterior Closed Plan of Treatment Future Appointment(s):06/03/2018 11:30 am - Ludin Calzada M.D. at [facility]05/14/2018 3:00 pm - Ludin Calzada M.D. at [facility] AT Fnszftdd10/31/2019 - Ludin Calzada M.D.M25.372 Other instability, left ankleFollow up:3 wks
[2018-05-30] MEDS ORDERED: Ketorolac INJ* 30 MG/ML 1 ML VIAL IV PUSH ONE (00:53)
[2018-05-30] MEDS ORDERED: NS 0.9% 1000 ML** 2,000 ML IV ONE (00:53)
[2018-05-30] MEDS ORDERED: PROCHLORPERAZINE INJ 5 MG/ML 2 ML VIAL IV ONE (00:53)
[2018-05-30] MEDS ORDERED: diPHENhydraMINE IV* 50 MG/ML 1 ml VIAL (BENADRYL) IV ONE (00:54)
[2018-05-30] MEDS ORDERED: Acetaminophen TAB* 325 MG PO ONE (03:15)
[2018-05-30 05:07] VITALS: BP 109/81
== END 2018-05-30 05:50 | disposition home or self-care (01) ==
LOC: ED 23:17
DX: G43.909 Migraine, unspecified, not intractable, without status migrainosus (principal); R11.2 Nausea with vomiting, unspecified; J45.909 Unspecified asthma, uncomplicated; Z88.5 Allergy status to narcotic agent; Z88.2 Allergy status to sulfonamides; Z91.048 Other nonmedicinal substance allergy status
CPT/HCPCS: 96361; 96374; 96375; 99285; A9270-GY; J0780; J1200; J1885

== ENCOUNTER 2022-08-11 23:41 | Inpatient (IN) ==
[2022-08-12] MEDS ORDERED: Norepinephrine 16MCG/ML BAGD5W 4,000 MCG/250 ML BAG IV ONE (00:04)
[2022-08-12] MEDS ORDERED: Cefepime 2 GM in Dextrose 2 GM/50 ML BAG IV ONE (00:06)
[2022-08-12] MEDS ORDERED: NORMOSOL R PH IV ONE (00:06)
[2022-08-12] MEDS ORDERED: metroNIDAZOLE IV 500 MG/100ML 500 MG/100 ML BAG IVPB ONE (00:06)
[2022-08-12 00:21] LABS: ABS Eosinophils 0.1 10^3/uL (0.0-0.5); ABS Monocytes 1.2 10^3/uL (0.0-0.9); ABS Neutrophils 8.3 10^3/uL (1.5-7.6); ABS Nucleated RBC 0.02 10^3/ul; Eosinophil % 0.6 %; Hematocrit 36.6 % (35-45); Hemoglobin 12.6 g/dL (11.5-14.3); Lymphocyte % 34.2 %; Mean Corpuscular Hgb Conc 34.5 g/dL (31-36); Mean Platelet Volume 7.2 fL (7.5-11.2); Nucleated Red Blood Cells % 0.1 /100 WBC (0.0-0.4); Platelet Count 374 10^3/uL (150-450); Red Blood Count 4.21 10^6/uL (3.63-4.92); Red Cell Distribution Width 13.1 % (12-17); White Blood Count 14.6 10^3/uL (3.8-11.8)
[2022-08-12 00:44] LABS: Activated Partial Thrombo Time 27.8 seconds (26.0-38.0); INR 1.18 (0.88-1.18)
[2022-08-12 00:45] LABS: High Sens Troponin Baseline < 3 pg/mL (<15)
[2022-08-12] MEDS ORDERED: Vancomycin 1,500 MG in NS 0.9% 250 ml 250 ML IVPB ONE (01:00)
[2022-08-12] MEDS ORDERED: Norepinephrine 16MCG/ML BAG NS 4,000 MCG/250 ML BAG IV SCH ×2 (01:00→05:23)
[2022-08-12 01:14] LABS: Urine Appearance Clear; Urine Bilirubin Negative (Negative); Urine Blood Negative (Negative); Urine Color Straw; Urine Glucose Negative (Negative); Urine Ketones Negative (Negative); Urine Nitrite Negative (Negative); Urine Protein Negative (Negative); Urine Specific Gravity 1.003 (1.002-1.030); Urine Urobilinogen Negative (Negative)
[2022-08-12 01:17] LABS: ALT 18 U/L (7-52); AST 17 U/L (13-39); Albumin 3.8 g/dL (3.2-5.2); Albumin/Globulin Ratio 1.8 (1-3); Alkaline Phosphatase 63 U/L (35-149); Anion Gap 8 mmol/L (2-16); Blood Urea Nitrogen 22 mg/dL (6-24); CO2 Carbon Dioxide 23 mmol/L (22-32); Calcium 8.5 mg/dL (8.6-10.3); Chloride 103 mmol/L (101-111); Creatinine, Serum 1.71 mg/dL (0.51-0.95); Globulin 2.1 g/dL (2-4); Glucose 72 mg/dL (70-100); Potassium 3.6 mmol/L (3.5-5.0); Sodium 134 mmol/L (135-145); Total Protein 5.9 g/dL (6.4-8.9); eGFR CKD-EPI 38.8 (>60)
[2022-08-12 01:45] LABS: High Sensitivity Troponin 1 Hr < 3 pg/mL (<15)
[2022-08-12] MEDS ORDERED: Atropine 0.1 MG/ML 10 ml SYR (1 mg) IV PUSH ONE (01:50)
[2022-08-12] MEDS ORDERED: Atropine 0.1 MG/ML 10 ml SYR (1 mg) ONE (01:51)
[2022-08-12] MEDS ORDERED: Enoxaparin 40 MG/0.4 ML SYR SUBCUT SCH (03:00)
[2022-08-12 03:12] LABS: TSH Ultra Thyroid Stim Horm 2.53 mcIU/mL (0.34-5.60)
[2022-08-12] MEDS ORDERED: Albuterol HFA INHALER 8 gm MDI INH PRN (03:18)
[2022-08-12] MEDS: Lactated Ringers 1000 ml BAG 1,000 ML IV SCH ×2 (04:09→12:05)
[2022-08-12] MEDS ORDERED: Norepinephrine 16MCG/ML BAGD5W 4,000 MCG/250 ML BAG IV SCH (05:46)
[2022-08-12 12:18] LABS: ABS Eosinophils 0.2 10^3/uL (0.0-0.5); ABS Lymphocytes 3.5 10^3/uL (1.0-4.8); ABS Monocytes 0.8 10^3/uL (0.0-0.9); ABS Neutrophils 4.1 10^3/uL (1.5-7.6); ABS Nucleated RBC 0.01 10^3/ul; Eosinophil % 2.4 %; Hemoglobin 11.8 g/dL (11.5-14.3); Lymphocyte % 40.1 %; Mean Corpuscular Hemoglobin 30.2 pg (27-33); Mean Corpuscular Hgb Conc 34.7 g/dL (31-36); Mean Platelet Volume 7.1 fL (7.5-11.2); Nucleated Red Blood Cells % 0.1 /100 WBC (0.0-0.4); Platelet Count 328 10^3/uL (150-450); Red Blood Count 3.91 10^6/uL (3.63-4.92); Red Cell Distribution Width 13.1 % (12-17); White Blood Count 8.7 10^3/uL (3.8-11.8)
[2022-08-12] MEDS ORDERED: Potassium EFFERVES 25 meq TAB PO ONE (12:23)
[2022-08-12] MEDS ORDERED: oxyCODONE/Acetamin 5/325 mg TAB PO ONE (12:32)
[2022-08-12] MEDS ORDERED: oxyCODONE/Acetamin 5/325 mg TAB PO PRN (12:52)
[2022-08-12 12:57] LABS: Anion Gap 3 mmol/L (2-16); Blood Urea Nitrogen 15 mg/dL (6-24); CO2 Carbon Dioxide 26 mmol/L (22-32); Calcium 7.9 mg/dL (8.6-10.3); Chloride 106 mmol/L (101-111); Creatinine, Serum 0.99 mg/dL (0.51-0.95); Glucose 87 mg/dL (70-100); Magnesium 1.9 mg/dL (1.9-2.7); Potassium 3.6 mmol/L (3.5-5.0); Sodium 135 mmol/L (135-145); eGFR CKD-EPI 74.8 (>60)
[2022-08-12 13:04] LABS: HCG Pregnancy < 0.60 mIU/mL
[2022-08-12 14:05] LABS: Erythrocyte Sed Rate 5 mm/Hr (0-19)
[2022-08-12 16:13] VITALS: BP 95/78
== END 2022-08-12 16:05 | disposition home or self-care (01) | DRG 207 ==
LOC: ED 23:41 → EDHOLD 08-12 02:13 → ICU 08-12 05:19
PROVIDERS: ADMIT Student in an Organized Health Care Education/Training Program; ATTEND Internal Medicine

== ENCOUNTER 2023-06-24 07:04 | Inpatient (IN) ==
[2023-06-24] MEDS ORDERED: LORazepam 2 mg VIAL 1 ml IV PUSH PRN ×2 (11:34)
[2023-06-24] MEDS ORDERED: SUMAtriptan Subcut 6 MG/0.5 ML VIAL SUBCUT PRN (11:36)
[2023-06-24] MEDS ORDERED: Albuterol HFA INHALER 8 gm MDI INH PRN (11:36)
[2023-06-24] MEDS: oxyCODONE/Acetamin 5/325 mg TAB PO PRN (12:25)
[2023-06-24] MEDS ORDERED: diazePAM INJ CARPUJECT 5 MG/ML SYRINGE IV PRN (13:48)
[2023-06-25 08:34] VITALS: BP 115/76
[2023-06-25] MEDS: CMCS: Meloxicam 7.5 mg TAB (NF) PO SCH (09:12)
[2023-06-25] MEDS: Multivitamins/Minerals TAB PO SCH (09:13)
== END 2023-06-25 10:45 | disposition home or self-care (01) | DRG 756 ==
LOC: SUATTDRO 07:04 → MEDTELE 07:04
PROVIDERS: ADMIT Psychiatry & Neurology Neurology; ATTEND Hospitalist